=== PATIENT | female | born 1945 | race African-American/Black ===

== ENCOUNTER 2017-09-29 06:07 | Day surgery (SDC) | payer MEDICARE ==
[~2017-09-29] VITALS: Ht 167.6 cm; Wt 93.0 kg
[~2017-09-29 06:07] MED LIST: ATEN-42 PO; CALC-381 PO; CHOL20009 PO; GYMNEMA PO; HYDR25TA PO; LACTATED RINGERS 1,000 ML IV SCH; MULT-983 PO
[2017-09-29 07:06] LABS: CLARITY URINE CLEAR (CLEAR); COLOR URINE YELLOW (YELLOW); KETONES URINE NEGATIVE (NEGATIVE); LEUKOCYTE ESTERASE URINE TRACE (NEGATIVE); NITRITE URINE NEGATIVE (NEGATIVE); OCCULT BLOOD URINE NEGATIVE (NEGATIVE); PH URINE 6.5 (4.5-8.0); PROTEIN URINE NEGATIVE (NEGATIVE); UROBILINOGEN URINE 0.2 E.U./dL (0.2-1.0)
[2017-09-29 07:09] LABS: BASOPHILS % 0.5 % (0.0-2.0); EOSINOPHILS % 1.1 % (0.0-5.0); HEMATOCRIT. 35.4 % (36.0-48.0); HEMOGLOBIN. 12.1 g/dL (12.0-16.0); LYMPHOCYTES % 21.3 % (20.0-50.0); MEAN CORPUSCULAR HEMOGLOBIN 28.1 pg (28.0-32.0); MEAN CORPUSCULAR VOLUME 82.3 fL (81.0-99.0); MEAN PLATELET VOLUME 7.9 fl (7.4-10.4); MONOCYTES % 7.5 % (2.0-8.0); NEUTROPHILS % 69.6 % (40.0-76.0); PLATELET 253 x1000/uL (130-400); RED BLOOD CELL COUNT 4.31 mill/uL (4.2-5.4); RED CELL DISTRIBUTION WIDTH 13.3 % (11.6-14.6)
[2017-09-29 07:14] LABS: INR 1.1; PARTIAL THROMBOPLASTIN TIME 26.5 sec (23.4-31.0)
[2017-09-29 07:45] LABS: CHLORIDE 103 mEq/L (98-107)
[2017-09-29] MEDS ORDERED: PROPOFOL 200MG/20ML VIAL IV ONE ×2 (07:46→08:17)
[2017-09-29] MEDS ORDERED: MIDAZOLAM HCL 2 MG/2 ML VIAL ONE (07:46)
[2017-09-29] MEDS ORDERED: FENTANYL CITRATE/PF 50MCG/ML 2ML VIAL ONE (07:46)
[2017-09-29] MEDS ORDERED: HYDROMORPHONE HCL/PF 2MG/ML CPJ IV PRN (08:00)
[2017-09-29] MEDS ORDERED: ONDANSETRON HCL 4MG/2ML VIAL IV PRN (08:00)
[2017-09-29] MEDS ORDERED: MEPERIDINE HCL/PF 25MG/ML CPJ IV PRN (08:00)
[2017-09-29] MEDS ORDERED: LABETALOL 5MG/ML SYR 20 MG/4 ML SYRINGE IV PRN (08:00)
[2017-09-29] MEDS ORDERED: CEFAZOLIN SODIUM 1000MG/VIAL ONE (08:26)
[2017-09-29] MEDS ORDERED: EPHEDRINE SULFATE 50MG/ML VIAL ONE (08:41)
== END 2017-09-29 10:58 | disposition home or self-care (01) ==
LOC: OR 06:07
PROVIDERS: ATTEND Obstetrics & Gynecology Obstetrics
DX: N95.0 Postmenopausal bleeding (principal); N84.0 Polyp of corpus uteri; Z78.0 Asymptomatic menopausal state; I10 Essential (primary) hypertension; Z98.890 Other specified postprocedural states; Z79.899 Other long term (current) drug therapy; E66.01 Morbid (severe) obesity due to excess calories
CPT/HCPCS: 36415; 58558; 80048; 81003; 85025; 85610; 85730; 88305; 93005; J0690; J2250; J3010; J3490; J7120; J2704